=== PATIENT | male | born 1970 | race Hispanic/Latino ===

== ENCOUNTER → 2017-05-03 | Outpatient (CLI) | payer BC, SELFPAY ==
--- NOTE | 2017-05-03 14:08 | CT ---
EXAM DESCRIPTION: CT ABDOMEN AND PELVIS WITHOUT AND WITH CONTRAST CLINICAL HISTORY: ABD PAIN, MICRO HEMATURIA COMPARISON: None Available. TECHNIQUE: CT of the abdomen and pelvis are performed prior to and during IV bolus administration of nonionic contrast. Oral contrast enhancement was not utilized This exam was performed according to our departmental dose-optimization program, which includes automated exposure control, adjustment of the mA and/or kV according to patient size and/or use of iterative reconstruction technique. FINDINGS: The lung bases are clear without effusion or infiltrate or mass. Noncontrast imaging demonstrates no evidence of hydronephrosis or intrarenal calculi or gallstones. A few colonic diverticula predominantly right-sided are incidentally noted. Prostatic calculi are evident. On contrast enhanced examination of the liver is diffusely fatty replaced without focal mass. A small normal spleen is present and the pancreas is normal in appearance. The gallbladder is normally distended without ductal dilation. The adrenal glands are normal. The kidneys normally enhance without mass or cyst or obstruction. No perinephric changes are noted. No hydronephrosis is evident and continuing into the bladder a partially distended bladder that appears slightly thick walled from either incomplete distention or an element of cystitis is noted. The prostate is small in size but demonstrates right-sided prostatic calculi. Mild degenerative changes and minimal dextroscoliosis of the spine is present. The anterior abdominal wall is unremarkable. IMPRESSION: 1. Normal appearance of the kidneys and collecting systems without mass or cyst or stone. The bladder is partially distended and appears thick-walled and the possibility of an element of cystitis cannot be excluded. A focal lesion is not identified. 2. Fatty replaced liver without focal mass. 3. Right and left colonic diverticulosis. 4. Normal sized prostate with prostatic calculi. Electronically signed by: Rey Sharma MD 05/03/2017 2:07 PM CDT
== END ==
LOC: CT 08:05
PROVIDERS: ATTEND Urology
DX: R31.9 Hematuria, unspecified (principal); R10.9 Unspecified abdominal pain; K57.30 Diverticulosis of large intestine without perforation or abscess without bleeding

== ENCOUNTER 2018-10-02 10:03 | Emergency (ER) | payer BC, SELFPAY ==
[2018-10-02 10:17] VITALS: BP 159/93; TEMP 97.6; O2SAT 98
[2018-10-02] MEDS ORDERED: ONDANSETRON ODT 8 MG TAB SL ONE (10:25)
[2018-10-02] MEDS ORDERED: MORPHINE SULFATE INJ 10 MG/ML VIAL IM ONE (10:25)
[2018-10-02] MEDS ORDERED: IBUPROFEN 200 MG TAB PO ONE (10:25)
--- NOTE | 2018-10-02 10:52 | RAD ---
EXAM DESCRIPTION: Chest,2 Views CLINICAL HISTORY: 48 years Male, left chest wall injury COMPARISON: None. TECHNIQUE: Frontal and lateral views of the chest. IMPRESSION: Cardiac silhouette is normal in size. Bibasilar atelectasis without focal or masslike consolidation appreciated. No pleural effusion or pneumothorax. Thoracic spondylosis. No acute displaced rib fracture appreciated on this single frontal view of the chest. Recommend dedicated rib series if there is clinical concern for a left-sided rib fracture. Electronically signed by: Santos Winkler MD 10/02/2018 10:51 AM [facility]
--- NOTE | 2018-10-02 11:11 | ED.PDOC ---
History of Present Illness - General Chief Complaint: Trauma Stated Complaint: left rib pain Time Seen by Provider: 10/02/18 10:24 Source: patient, Vital Signs reviewed Exam Limitations: no limitations - History of Present Illness Initial Comments: c/o left chest wall pain after falling into a hole yesterday. The hole was lined with concrete & was about 4 ft deep. His chest struck the side of the hole. Denies any other injuries. Occurred: yesterday Severity: moderate Injuries/Pain Location: chest Reason for Fall: other - didn't see the hole Loss of Consciousness: no loss of consciousness Improving Factors: nothing Worsening Factors: movement, other - deep breathing Associated Symptoms (Fall): denies symptoms Allergies/Adverse Reactions: Allergies NO KNOWN ALLERGY Allergy (Unverified 05/21/13 16:26) Home Medications: Ambulatory Orders Acetamin W/Cod #3 Tab [Tylenol w/CODEINE #3] 2 ea PO Q6HRS PRN 2 Days #16 tab 10/02/18 Tramadol HCl [Ultram] 50 mg PO Q8HRS PRN 3 Days #9 tab 10/02/18 Review of Systems - Review of Systems Constitutional: States: no symptoms reported Respiratory: States: see HPI. Denies: short of breath Cardiology: States: see HPI Gastrointestinal/Abdominal: States: no symptoms reported Genitourinary: States: no symptoms reported Musculoskeletal: States: see HPI. Denies: back pain, neck pain Skin: States: no symptoms reported Neurological: States: no symptoms reported Past Medical History (General) - Patient Medical History Hx Stroke: No Hx Congestive Heart Failure: No Hx Diabetes: No Surgical History: no surgical history - Vaccination History Hx Influenza Vaccination: No - Social History Hx Tobacco Use: No Physical Exam - Physical Exam General Appearance: Alert, No apparent distress, Other - uncomfortable especially with movement ENT Exam: hearing grossly normal Cardiovascular/Respiratory: regular rate, rhythm, no JVD, normal breath sounds, no respiratory distress, other - no crepitus Gastrointestinal/Abdominal: non tender, soft, no organomegaly Back Exam: normal inspection, no CVA tenderness, no vertebral tenderness Extremity Exam: no evidence of injury Neurologic: alert, normal mood/affect, oriented x 3 Skin Exam: normal color, warm/dry - [place] Coma Score [place] Total: 15 Progress - Progress Progress: 10/02/18 11:09 Feels a little better. Instructed him on cough & deep breathing exercises at home. - EKG/XRAY/CT XRAY: chest - no fxs Departure - Departure Clinical Impression: Contusion of chest wall Qualifiers: Encounter type: initial encounter Laterality: left Qualified Code(s): S20.212A - Contusion of left front wall of thorax, initial encounter Time of Disposition: 11:11 Disposition: Discharge to Home or Self Care Condition: Good Departure Forms: ED Discharge - Pt. Copy, Patient Portal Self Enrollment Instructions: DI for Trauma, Bruised Rib (DC) Activity: increase activity as tolerated, other - No work tomorrow. No driving while taking pain medications. Referrals: Jhonatan Preston MD [Primary Care Provider] - 10/08/18 (if not resolved) Prescriptions: Acetamin W/Cod #3 Tab [Tylenol w/CODEINE #3] 2 ea PO Q6HRS PRN 2 Days #16 tab PRN Reason: Moderate To Severe Pain Tramadol HCl [Ultram] 50 mg PO Q8HRS PRN 3 Days #9 tab PRN Reason: Moderate Pain Home Medications: Ambulatory Orders Acetamin W/Cod #3 Tab [Tylenol w/CODEINE #3] 2 ea PO Q6HRS PRN 2 Days #16 tab 10/02/18 Tramadol HCl [Ultram] 50 mg PO Q8HRS PRN 3 Days #9 tab 18
== END 2018-10-02 11:39 | disposition home or self-care (01) ==
LOC: ER 10:03
DX: S20.212A Contusion of left front wall of thorax, initial encounter (principal); W17.2XXA Fall into hole, initial encounter; Y92.9 Unspecified place or not applicable
CPT/HCPCS: 71046; J2270